=== PATIENT | male | born 1955 | race Caucasian/White ===

== ENCOUNTER → 2020-03-15 07:17 | Outpatient (CLI) | payer OTHER, SELFPAY ==
--- NOTE | ~2020-03-15 | MR_ITS ---
EXAMINATION: MR shoulder RT wo con DATE: 03/15/2020 08:17 INDICATION: Chronic right shoulder pain TECHNIQUE: Magnetic resonance imaging (MRI) of the right shoulder was performed without intravenous c ontrast. Sequences included axial PD-weighted FS FSE, coronal oblique PD-weighted FS FSE, coronal obl ique T2-weighted FS FSE, sagittal PD-weighted FS FSE, and sagittal T1-weighted SE. COMPARISON: None. FINDINGS: Coracoacromial arch: The acromion undersurface is curved in morphology (type II). Small subacromial spur along the anterio r and lateral margins of the acromion. The coracoacromial ligament appears mildly thickened and fraye d. Mild acromioclavicular osteoarthritis. Rotator cuff: Moderate supraspinatus, subscapularis and mild infraspinatus tendinopathy with full-thickness tear of the majority supraspinatus tendon. There are few residual articular sided fibers of the anterior mos t portion of the tendon. Posteriorly the tear extends as an additional severe articular sided tear in volving greater than 50% of the thickness of the infraspinatus tendon. The full-thickness tear defect measures approximately 4 cm medial to lateral with the frayed retracted supraspinatus tear margin lo cated midway between the apex of the humeral head and the rim of the glenoid. The tear defect at the level of the apex of the humeral head measures approximately 2 cm anterior to posteriorly. There is a small moderate residual frayed tendon material along the superior facet footplate. The tear extends anteriorly to involve the cephalad third and lateral third of the lesser tuberosity footplate of the subscapularis tendon allowing subluxation of the long head biceps tendon across the rim of the intert ubercular groove and into the split tear defect between the remaining intact articular side of the te ndon and intact bursal side which remains contiguous with the intact transverse humeral ligament. The split tear extends approximately 2.5 cm medially from the rim of the intertubercular groove at the l ateral margin of the lesser tuberosity. The teres minor tendon is normal. There is mild to moderate f atty atrophy of the supraspinatus and infraspinatus muscle bellies, also with some medial retraction of the myotendinous junctions. Mild fatty atrophy of the infraspinatus muscle belly. Biceps tendon, glenoid labrum and glenohumeral cartilage: There is severe tendinopathy and longitudinal split tearing of the long head biceps tendon. There is a relatively clearly defined linear tear at the base of the superior to posterior glenoid labrum. Th ere is more irregular degenerative tearing of the inferior and anteroinferior labrum. Also at the inf erior glenoid is chondral swelling with deep fissuring involving greater than 50% the cartilage thick ness. Partial-thickness chondral ulceration at the superolateral and posterior superior aspect of the humeral head underlying the acromion. Fluid: Small glenohumeral joint effusion which extends through the full-thickness rotator cuff tear to commu nicate with additional small round fluid in the subacromial/subdeltoid bursa. No loose osteochondral bodies. Bones: Cephalad subluxation of the humeral head with respect to the glenoid with narrowing of the subacromia l space with the articular cartilage at the apex of the humeral head contacting the undersurface of t he acromion. No fracture or pathologic marrow replacing process. IMPRESSION: 1. Large predominantly articular sided tear involving significant portion of the subscapularis, supra spinatus and infraspinatus tendons with moderate sized full-thickness component involving the majorit y of the supraspinatus tendon. This likely chronic given the mild to moderate associated fatty atroph y. 2. Severe tendinopathy and longitudinal split tearing of the long head biceps tendon which is subluxe d across the subscapularis tear defect
== END ==
PROVIDERS: PCP Internal Medicine; Visit Provider Orthopaedic Surgery
DX: M19.011 Primary osteoarthritis, right shoulder (principal)
CPT/HCPCS: 73221